=== PATIENT | male | born 1980 | race Caucasian/White ===

== ENCOUNTER 2019-01-29 15:24 | Outpatient (REF) | payer MEDICARE, MEDICAID, SELFPAY ==
[2019-01-29 22:21] LABS: HCT 46.5 % (40.0-50.0); HGB 15.6 g/dL (13.5-17.5); Mean Corp. HGB Concentration 33.5 g/dL (32.0-36.0); Mean Corpuscular Hemoglobin 29.9 pg (27.0-33.0); Mean Corpuscular Volume 89.1 fL (80-95); Mean Platelet Volume 9.5 fL (8.0-11.0); Platelet Count 297 x1000/uL (130-400); RBC 5.22 m/cumm (4.50-6.00); RBC Distribution Width 13.2 % (11.8-14.1); White Blood Cell Count 6.87 k/cumm (4.4-10.8)
[2019-01-29 22:46] LABS: Bilirubin Moderate (Negative); Blood Negative (Negative); Clarity Clear; Glucose Negative (Negative); Ketones 80 mg/dL (Negative); Leukocyte Esterase Negative (Negative); Nitrite Negative (Negative); Specific Gravity 1.025 (1.005-1.025); pH 6.5 (5-8)
[2019-01-29 22:47] LABS: Bacteria Few HPF (Negative); C & S Indicated? No; Casts Negative LPF (Negative); Crystals Negative HPF (Negative); Epithelial Cells Negative HPF (Negative); Mucus Moderate (Negative); Other Cells Negative (Negative); RBC 0-2 (0-2); WBC 0-2 HPF (0-5)
[2019-01-29 22:55] LABS: ALT 995 U/L (12-78); AST 248 U/L (15-37); Albumin 4.1 g/dL (3.4-5.0); Alkaline Phosphatase 223 U/L (46-116); Amylase 30 U/L (25-115); Anion Gap 9.2 mmol/L (3-11); BUN 13 mg/dL (7-18); Bilirubin, Total 1.2 mg/dL (0.2-1.0); CO2 28.8 mmol/L (21.0-32.0); CREATININE 1.11 mg/dL (0.70-1.30); Chloride 99 mmol/L (98-107); Glucose 107 mg/dL (70-100); Lipase 87 U/L (73-393); Potassium 4.1 mmol/L (3.5-5.1); Sodium 137 mmol/L (136-145); Total Protein 7.8 g/dL (6.4-8.2)
[2019-01-29 23:03] LABS: Calcium 9.1 mg/dL (8.5-10.1)
[2019-01-31 11:11] LABS: Hepatitis A Antibody IgM Negative (NEGAT); Hepatitis B Core Antibody Negative (NEGAT); Hepatitis B surface Ag Negative (NEGAT); Hepatitis C Ab w Rflx HCV PCR Negative (NEGAT)
== END 2019-01-29 15:44 ==
LOC: NCHCN 15:24
PROVIDERS: Visit Provider Nurse Practitioner Family
DX: R10.9 Unspecified abdominal pain (principal); Z11.59 Encounter for screening for other viral diseases
CPT/HCPCS: 80053; 83690; 85027; 86704; 86709; 86803; 87340; 81003; 81015; 82150

== ENCOUNTER 2019-02-11 20:57 | Outpatient (REF) | payer MEDICARE, MEDICAID, SELFPAY ==
[2019-02-11 21:00] LABS: HGB 14.6 g/dL (13.5-17.5); Mean Corpuscular Hemoglobin 30.2 pg (27.0-33.0); Mean Platelet Volume 9.1 fL (8.0-11.0); Platelet Count 387 x1000/uL (130-400); RBC 4.83 m/cumm (4.50-6.00); RBC Distribution Width 12.5 % (11.8-14.1); White Blood Cell Count 5.22 k/cumm (4.4-10.8)
[2019-02-11 21:08] LABS: Prothrombin Time 9.9 sec (9.3-11.0)
[2019-02-11 21:12] LABS: ALT 111 U/L (12-78); AST 23 U/L (15-37); Albumin 3.9 g/dL (3.4-5.0); Alkaline Phosphatase 108 U/L (46-116); Anion Gap 9.1 mmol/L (3-11); BUN 13 mg/dL (7-18); Bilirubin, Total 0.3 mg/dL (0.2-1.0); CO2 27.9 mmol/L (21.0-32.0); CREATININE 1.03 mg/dL (0.70-1.30); Calcium 9.7 mg/dL (8.5-10.1); Chloride 101 mmol/L (98-107); Glucose 101 mg/dL (70-100); Potassium 4.6 mmol/L (3.5-5.1); Sodium 138 mmol/L (136-145)
== END 2019-02-11 21:17 ==
LOC: NCHCN 20:57
PROVIDERS: Visit Provider Nurse Practitioner Family
DX: R74.8 Abnormal levels of other serum enzymes (principal); I10 Essential (primary) hypertension; R10.9 Unspecified abdominal pain; Z86.19 Personal history of other infectious and parasitic diseases
CPT/HCPCS: 80053; 85027; 85610

== ENCOUNTER 2019-03-11 22:46 | Outpatient (REF) | payer MEDICARE, MEDICAID, SELFPAY ==
[2019-03-11 22:05] LABS: ALT 30 U/L (12-78); AST 18 U/L (15-37); Alkaline Phosphatase 86 U/L (46-116); Bilirubin, Total 0.4 mg/dL (0.2-1.0); Total Protein 7.3 g/dL (6.4-8.2)
== END 2019-03-11 23:06 ==
LOC: LBN 22:46
PROVIDERS: Visit Provider Nurse Practitioner Family
DX: R74.8 Abnormal levels of other serum enzymes (principal); F11.21 Opioid dependence, in remission; Z86.19 Personal history of other infectious and parasitic diseases
CPT/HCPCS: 80076

== ENCOUNTER 2020-01-20 09:46 | Outpatient (REF) | payer MEDICARE, MEDICAID, SELFPAY ==
[2020-01-20 22:11] LABS: Anion Gap 8.3 mmol/L (3-11); BUN 12 mg/dL (7-18); CO2 28.7 mmol/L (21.0-32.0); CREATININE 1.09 mg/dL (0.70-1.30); Calcium 9.3 mg/dL (8.5-10.1); Calculated LDL 174 mg/dL (<100); Chloride 100 mmol/L (98-107); Cholesterol 263 mg/dL (<200); Glucose 115 mg/dL (74-106); HDL Cholesterol 68 mg/dL (40-60); Potassium 4.6 mmol/L (3.5-5.1); Sodium 137 mmol/L (136-145); Triglyceride 109 mg/dL (<150)
[2020-01-20 22:14] LABS: Hemoglobin A1C 5.4 % (3.8-5.6)
== END 2020-01-20 10:06 ==
LOC: NCHCN 09:46
PROVIDERS: Visit Provider Nurse Practitioner Family
DX: I10 Essential (primary) hypertension (principal); R73.09 Other abnormal glucose; Z51.81 Encounter for therapeutic drug level monitoring
CPT/HCPCS: 80048; 80061; 83036

== ENCOUNTER 2020-03-25 09:18 | Outpatient (REF) | payer MEDICARE, MEDICAID, SELFPAY ==
[2020-03-25 20:50] LABS: Calculated LDL 169 mg/dL (<100); Cholesterol 239 mg/dL (<200); HDL Cholesterol 40 mg/dL (40-60); Triglyceride 152 mg/dL (<150)
== END 2020-03-25 09:38 ==
LOC: NCHCN 09:18
PROVIDERS: Visit Provider Nurse Practitioner Family
DX: I10 Essential (primary) hypertension (principal); Z13.6 Encounter for screening for cardiovascular disorders
CPT/HCPCS: 80061

== ENCOUNTER 2020-08-26 09:18 | Outpatient (REF) | payer MEDICARE, MEDICAID, SELFPAY ==
[2020-08-26 21:33] LABS: Anion Gap 8.5 mmol/L (3-11); BUN 15 mg/dL (7-18); CO2 28.5 mmol/L (21.0-32.0); CREATININE 1.16 mg/dL (0.70-1.30); Calcium 9.2 mg/dL (8.5-10.1); Calculated LDL 82 mg/dL (<100); Chloride 101 mmol/L (98-107); Cholesterol 174 mg/dL (<200); Glucose 129 mg/dL (74-106); HDL Cholesterol 39 mg/dL (40-60); Potassium 4.2 mmol/L (3.5-5.1); Sodium 138 mmol/L (136-145); Triglyceride 267 mg/dL (<150)
== END 2020-08-26 09:38 ==
LOC: NCHCN 09:18
PROVIDERS: Visit Provider Nurse Practitioner Family
DX: I10 Essential (primary) hypertension (principal); E78.5 Hyperlipidemia, unspecified
CPT/HCPCS: 80048; 80061

== ENCOUNTER 2020-12-16 14:17 | Outpatient (REF) | payer MEDICARE, MEDICAID, SELFPAY ==
[2020-12-21 13:31] LABS: Testosterone, Free 8.28 ng/dL (4.65-18.1); Testosterone, Total 202 ng/dL (240-950)
== END 2020-12-16 14:18 | disposition home or self-care (01) ==
LOC: NCHCN 14:17
PROVIDERS: Visit Provider Nurse Practitioner Family
DX: N52.9 Male erectile dysfunction, unspecified (principal); F11.21 Opioid dependence, in remission; M54.5 Low back pain
CPT/HCPCS: 84402; 84403

== ENCOUNTER 2021-08-09 09:24 | Outpatient (REF) | payer MEDICARE, MEDICAID, SELFPAY ==
[2021-08-08 16:04] LABS: ALT 35 U/L (16-63); AST 15 U/L (15-37); Albumin 4.1 g/dL (3.4-5.0); Alkaline Phosphatase 99 U/L (46-116); Anion Gap 5.6 mmol/L (3-11); BUN 20 mg/dL (7-18); Bilirubin, Total 0.5 mg/dL (0.2-1.0); CO2 30.4 mmol/L (21.0-32.0); Calcium 9.4 mg/dL (8.5-10.1); Chloride 102 mmol/L (98-107); Glucose 105 mg/dL (74-106); Potassium 4.7 mmol/L (3.5-5.1); Sodium 138 mmol/L (136-145); Total Protein 7.5 g/dL (6.4-8.2)
[2021-08-08 16:45] LABS: Hemoglobin A1C 5.5 % (<5.7)
== END 2021-08-09 09:25 | disposition home or self-care (01) ==
LOC: NCHCN 09:24
PROVIDERS: Visit Provider Nurse Practitioner Family
DX: I10 Essential (primary) hypertension (principal); E78.5 Hyperlipidemia, unspecified; Z13.1 Encounter for screening for diabetes mellitus
CPT/HCPCS: 80053; 83036

== ENCOUNTER 2021-09-26 20:37 | Emergency (ER) | payer MEDICARE, MEDICAID, SELFPAY ==
[2021-09-26 20:42] VITALS: BP 153/100; PULSE 113; RESP 18; TEMP 37.1; O2SAT 97
--- NOTE | 2021-09-26 20:45 | DI.RAD_ITS ---
Exam(s) XR WRIST LT COMP NAVICULAR XR FOREARM LT EXAM: XR FOREARM LT CLINICAL HISTORY: trauma, distal pain TECHNIQUE: COMPARISON: CR,XR XR WRIST LT COMP NAVICULAR from 09/26/2021 FINDINGS: Five views of the wrist and two views of the forearm were obtained. There is a fracture of the triqu etrum which is incompletely visualized but appears to involve the lateral and dorsal aspect of the sat[place] ne. There is probable moderate comminution. Mild displacement noted. No additional fracture seen. Carpal alignment is within normal limits. IMPRESSION: RADIATION DOSE DELIVERED: Total DLP
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
[2021-09-26 22:13] VITALS: BP 135/96; PULSE 102; RESP 18; O2SAT 95
[2021-09-26 22:16] VITALS: BP 135/96; PULSE 102; RESP 18; TEMP 37.1; O2SAT 95
== END 2021-09-26 22:17 | disposition home or self-care (01) ==
PROVIDERS: Emergency Provider Nurse Practitioner Family; PCP Nurse Practitioner Family
DX: S62.112A Displaced fracture of triquetrum [cuneiform] bone, left wrist, initial encounter for closed fracture (principal); V86.52XA Driver of snowmobile injured in nontraffic accident, initial encounter
CPT/HCPCS: 29125; 99284; 73090; 73110; 99283

== ENCOUNTER 2021-10-05 10:57 | Outpatient (CLI) | payer MEDICARE, MEDICAID, SELFPAY ==
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
== END 2021-10-05 10:58 | disposition home or self-care (01) ==
LOC: DIORS 10:57
PROVIDERS: PCP Nurse Practitioner Family; Referring Provider Nurse Practitioner Family; Visit Provider Physician Assistant
DX: S62.112A Displaced fracture of triquetrum [cuneiform] bone, left wrist, initial encounter for closed fracture (principal); V86.93XA Unspecified occupant of dune buggy injured in nontraffic accident, initial encounter
CPT/HCPCS: 99203; 73110

== ENCOUNTER → 2021-11-09 09:45 | Outpatient (BNVA) | payer MEDICARE, MEDICAID, SELFPAY | PROVIDERS: PCP Nurse Practitioner Family; Referring Provider Nurse Practitioner Family; Visit Provider Student in an Organized Health Care Education/Training Program | DX: Z53.29 Procedure and treatment not carried out because of patient's decision for other reasons (principal) ==

== ENCOUNTER 2022-08-14 12:28 | Outpatient (REF) | payer MEDICARE, MEDICAID, SELFPAY ==
[2022-08-14 15:05] LABS: HCT 47.3 % (40.0-50.0); MCH 30.7 pg (27.0-33.0); MCHC 33.8 % (32.0-36.0); MCV 91 fL (80-95); MPV 9.5 fL (8.0-11.0); Platelet Count 249 10^3/uL (130-400); RBC 5.21 10^6/uL (4.36-5.78); RDW 11.9 % (11.8-14.1); RDW-SD 39.4 fL; WBC 5.06 10^3/uL (4.4-10.8)
[2022-08-14 15:17] LABS: ALT 47 U/L (16-63); AST 22 U/L (15-37); Albumin 4.4 g/dL (3.4-5.0); Alkaline Phosphatase 108 U/L (46-116); Anion Gap 7.8 mmol/L (3-11); BUN 18 mg/dL (7-18); Bilirubin, Total 0.4 mg/dL (0.2-1.0); CO2 30.2 mmol/L (21.0-32.0); CREATININE 1.1 mg/dL (0.70-1.30); Calcium 9.6 mg/dL (8.5-10.1); Chloride 100 mmol/L (98-107); Estimated GFR 87.03 (mL/min/1.73m2); Glucose 104 mg/dL (74-106); Potassium 4.2 mmol/L (3.5-5.1); Sodium 138 mmol/L (136-145); Total Protein 7.9 g/dL (6.4-8.2)
[2022-08-15 09:10] LABS: Hepatitis C Ab w Rflx HCV PCR Negative (Negative)
[2022-08-15 09:53] LABS: HIV-1/2 Ag & Ab Screen Negative (Negative)
[2022-08-17 15:33] LABS: Testosterone, Total 122 ng/dL (240-950)
== END 2022-08-14 12:29 | disposition home or self-care (01) ==
LOC: NCHCN 12:28
PROVIDERS: PCP Nurse Practitioner Family; Visit Provider Nurse Practitioner Family
DX: F11.21 Opioid dependence, in remission (principal); I10 Essential (primary) hypertension; F31.81 Bipolar II disorder; N52.9 Male erectile dysfunction, unspecified; Z86.19 Personal history of other infectious and parasitic diseases
CPT/HCPCS: 80053; 84402; 84403; 85027; 86803; 87389

== ENCOUNTER 2022-09-04 14:04 | Outpatient (REF) | payer MEDICARE, MEDICAID, SELFPAY ==
[2022-09-04 15:31] LABS: Iron 143 ug/dL (65-175); Total Iron Binding Capacity 298 ug/dL (250-450); Transferrin Sat 48 % (20-55)
[2022-09-04 15:34] LABS: Ferritin 166 ng/mL (26-388); TSH (W/Ref FT4) 1.36 uIU/mL (0.36-3.74)
[2022-09-05 00:01] LABS: FSH 2.8 mIU/mL (1.4-18.1); LH 1.6 mIU/mL (1.5-9.3)
[2022-09-08 16:30] LABS: Testosterone, Free 7.79 ng/dL (4.46-17.1); Testosterone, Total 190 ng/dL (240-950)
== END 2022-09-04 14:05 | disposition home or self-care (01) ==
LOC: NCHCN 14:04
PROVIDERS: PCP Nurse Practitioner Family; Visit Provider Nurse Practitioner Family
DX: Z86.19 Personal history of other infectious and parasitic diseases (principal); I10 Essential (primary) hypertension; E66.3 Overweight; N52.9 Male erectile dysfunction, unspecified; Z51.81 Encounter for therapeutic drug level monitoring
CPT/HCPCS: 82533; 84402; 84403; 82728; 83001; 83002; 83540; 83550; 84146; 84443

== ENCOUNTER 2022-10-16 11:25 | Outpatient (REF) | payer MEDICARE, MEDICAID, SELFPAY ==
[2022-10-21 14:20] LABS: Testosterone, Free 5.44 ng/dL (4.46-17.1); Testosterone, Total 165 ng/dL (240-950)
== END 2022-10-16 11:26 | disposition home or self-care (01) ==
LOC: NCHCN 11:25
PROVIDERS: PCP Nurse Practitioner Family; Visit Provider Nurse Practitioner Family
DX: N52.9 Male erectile dysfunction, unspecified (principal); E29.1 Testicular hypofunction
CPT/HCPCS: 84402; 84403

== ENCOUNTER 2023-01-22 15:53 | Outpatient (REF) | payer MEDICARE, MEDICAID, SELFPAY ==
[2023-01-22 22:15] LABS: ALT 86 U/L (16-63); AST 32 U/L (15-37); Albumin 4.1 g/dL (3.4-5.0); Alkaline Phosphatase 108 U/L (46-116); Bilirubin, Direct 0.1 mg/dL (0.0-0.2); Bilirubin, Total 0.4 mg/dL (0.2-1.0); Total Protein 7.7 g/dL (6.4-8.2)
[2023-01-27 11:58] LABS: Testosterone, Free 9.07 ng/dL (4.46-17.1); Testosterone, Total 214 ng/dL (240-950)
== END 2023-01-22 15:54 | disposition home or self-care (01) ==
LOC: NCHCN 15:53
PROVIDERS: PCP Nurse Practitioner Family; Visit Provider Nurse Practitioner Family
DX: E29.1 Testicular hypofunction (principal); Z79.899 Other long term (current) drug therapy
CPT/HCPCS: 80076; 84402; 84403

== ENCOUNTER 2023-02-19 15:46 | Outpatient (REF) | payer MEDICARE, MEDICAID, SELFPAY ==
[2023-02-19 15:59] LABS: ALT 72 U/L (16-63); AST 35 U/L (15-37); Albumin 3.9 g/dL (3.4-5.0); Alkaline Phosphatase 104 U/L (46-116); Bilirubin, Total 0.4 mg/dL (0.2-1.0); Total Protein 7.5 g/dL (6.4-8.2)
[2023-02-19 16:01] LABS: Bilirubin, Direct < 0.1 mg/dL (0.0-0.2)
[2023-02-24 12:35] LABS: Testosterone, Total 64 ng/dL (240-950)
== END 2023-02-19 15:47 | disposition home or self-care (01) ==
LOC: NCHCN 15:46
PROVIDERS: PCP Nurse Practitioner Family; Visit Provider Nurse Practitioner Family
DX: E29.1 Testicular hypofunction (principal); R79.89 Other specified abnormal findings of blood chemistry
CPT/HCPCS: 80076; 84403

== ENCOUNTER 2023-05-14 12:53 | Outpatient (REF) | payer MEDICARE, MEDICAID, SELFPAY ==
[2023-05-14 16:45] LABS: ALT 88 U/L (16-63); AST 44 U/L (15-37); Albumin 4.3 g/dL (3.4-5.0); Alkaline Phosphatase 123 U/L (46-116); Bilirubin, Direct 0.1 mg/dL (0.0-0.2); Bilirubin, Total 0.5 mg/dL (0.2-1.0); Total Protein 8.3 g/dL (6.4-8.2)
[2023-05-17 10:34] LABS: Testosterone, Total 463 ng/dL (240-950)
== END 2023-05-14 12:54 | disposition home or self-care (01) ==
LOC: NCHCN 12:53
PROVIDERS: PCP Nurse Practitioner Family; Visit Provider Nurse Practitioner Family
DX: E29.1 Testicular hypofunction (principal); F43.10 Post-traumatic stress disorder, unspecified; F11.21 Opioid dependence, in remission; F31.81 Bipolar II disorder; R79.89 Other specified abnormal findings of blood chemistry
CPT/HCPCS: 80076; 84403

== ENCOUNTER 2023-06-12 20:13 | Outpatient (REF) | payer MEDICARE, MEDICAID, SELFPAY ==
[2023-06-12 21:34] LABS: ALT 83 U/L (16-63); AST 31 U/L (15-37); Albumin 4.1 g/dL (3.4-5.0); Alkaline Phosphatase 122 U/L (46-116); Bilirubin, Direct 0.1 mg/dL (0.0-0.2); Bilirubin, Total 0.3 mg/dL (0.2-1.0); GGT 89 U/L (15-85)
[2023-06-14 08:43] LABS: HBs Antibody, Quant 100.8 mIU/mL (See Note); Hepatitis B Surface Ab Positive (See Note)
[2023-06-14 08:52] LABS: Hepatitis B Surface Ag Negative (Negative)
[2023-06-14 09:47] LABS: Hepatitis C Ab w Rflx HCV PCR Negative (Negative)
[2023-06-14 11:09] LABS: Hep A Total Ab w Rflx IgM Positive (Negative)
[2023-06-14 12:13] LABS: Hep A Antibody IgM Negative (Negative)
== END 2023-06-12 20:14 | disposition home or self-care (01) ==
LOC: NCHCN 20:13
PROVIDERS: PCP Nurse Practitioner Family; Visit Provider Nurse Practitioner Family
DX: R79.89 Other specified abnormal findings of blood chemistry (principal); Z11.59 Encounter for screening for other viral diseases; Z01.84 Encounter for antibody response examination; R74.8 Abnormal levels of other serum enzymes
CPT/HCPCS: 80076; 86706; 86709; 86803; 87340; 82977

== ENCOUNTER 2023-12-25 17:13 | Outpatient (REF) | payer MEDICARE, MEDICAID, SELFPAY ==
[2023-12-25 21:34] LABS: ALT 62 U/L (16-63); AST 29 U/L (15-37); Albumin 4.1 g/dL (3.4-5.0); Alkaline Phosphatase 102 U/L (46-116); Anion Gap 9.9 mmol/L (3-11); BUN 17 mg/dL (7-18); Bilirubin, Total 0.2 mg/dL (0.2-1.0); CO2 25.1 mmol/L (21.0-32.0); Calcium 9.1 mg/dL (8.5-10.1); Chloride 101 mmol/L (98-107); Estimated GFR 96.97 (mL/min/1.73m2); Glucose 100 mg/dL (74-106); Potassium 4.2 mmol/L (3.5-5.1); Sodium 136 mmol/L (136-145)
== END 2023-12-25 17:14 | disposition home or self-care (01) ==
LOC: NCHCN 17:13
PROVIDERS: PCP Nurse Practitioner Family; Visit Provider Nurse Practitioner Family
DX: R74.8 Abnormal levels of other serum enzymes (principal)
CPT/HCPCS: 80053

== ENCOUNTER 2025-03-17 17:43 | Outpatient (REF) | payer MEDICARE, MEDICAID, SELFPAY ==
[2025-03-17 15:59] LABS: ALT 37 U/L (16-63); AST 25 U/L (15-37); Albumin 4.3 g/dL (3.4-5.0); Alkaline Phosphatase 94 U/L (46-116); Bilirubin, Direct 0.1 mg/dL (0.0-0.2); Bilirubin, Total 0.4 mg/dL (0.2-1.0); Total Protein 8.0 g/dL (6.4-8.2)
== END 2025-03-17 17:44 | disposition home or self-care (01) ==
LOC: NCHCN 17:43
PROVIDERS: PCP Nurse Practitioner Family; Visit Provider Nurse Practitioner Family
DX: F11.21 Opioid dependence, in remission (principal)
CPT/HCPCS: 80076

== ENCOUNTER 2025-08-03 18:25 | Outpatient (REF) | payer MEDICARE, MEDICAID, SELFPAY ==
[2025-08-03 21:33] LABS: Anion Gap 7.3 mmol/L (3-11); BUN 16 mg/dL (9-23); CO2 29.7 mmol/L (20.0-31.0); Calcium 9.9 mg/dL (8.3-10.6); Chloride 103 mmol/L (98-107); Cholesterol 182 mg/dL (<200); Glucose 95 mg/dL (74-106); HDL Cholesterol 72 mg/dL (>40); Potassium 4.2 mmol/L (3.5-5.1); Sodium 140 mmol/L (136-145)
[2025-08-05 15:17] LABS: PSA, Diagnostic 0.6 ng/mL (<=2.5)
== END 2025-08-03 18:26 | disposition home or self-care (01) ==
LOC: NCHCN 18:25
PROVIDERS: PCP Nurse Practitioner Family; Visit Provider Nurse Practitioner Family
DX: R35.1 Nocturia (principal); E78.00 Pure hypercholesterolemia, unspecified; I10 Essential (primary) hypertension
CPT/HCPCS: 80048; 80061; 84153